=== PATIENT | male | born 1985 | race American Indian/Alaskan Native ===

== ENCOUNTER 2017-07-28 20:01 | Emergency (ER) | payer BC ==
[2017-07-28 20:46] VITALS: BP 110/73
--- NOTE | 2017-07-28 23:15 | XRay Report ---
FINAL REPORT PROCEDURE: XR FOOT 2V RT TECHNIQUE: RIGHT foot radiographs, AP and lateral views. HISTORY: right foot pain post fall COMPARISON: No prior studies are available for comparison. FINDINGS: Fracture (s) and/or Dislocation(s): None . Alignment: Normal. Joint space(s): Normal. Soft tissues: Normal. Bone mineralization: Normal. Foreign bodies: None. Calcaneal spurring: None. IMPRESSION: Normal Examination.
[2017-07-29] MEDS ORDERED: MOTRIN PO ONE (00:42)
--- NOTE | 2017-07-29 00:47 | Emergency Department Report ---
ED Fall HPI - General Chief Complaint: Fall Stated Complaint: RIB PAIN / TOE PAIN Time Seen by Provider: 07/29/17 00:41 Source: patient Mode of arrival: Ambulatory - History of Present Illness Initial Comments: 31-year-old [place] male reports he fell down 5-6 steps about 5 days ago and is having right foot and pain in the right rib area. Patient reports that he's taken ibuprofen maybe one a day which reports not really helped. Patient reports that when he coughs or takes a deep breath or moves a certain positions the pain in his right rib increases and gets worse. Patient denies any shortness of breathing. No past medical history currently takes no medications on a daily basis and has no known drug allergies. MD Complaint: fall -: days(s) (5) Fall From: down stairs (#) (5-6) Place Fall Occurred: other (friend's house) Loss of Consciousness: none Prolonged Down Time?: no Symptoms Prior to Fall: none Location: chest, other (right foot) Location - Extremities: Right: Foot Severity: moderate Quality: sharp (rib), stabbing (rib), aching (foot) Associated Symptoms: denies: headache, neck pain, shortness of breath, unable to walk - Related Data Previous Rx's Medication Instructions Recorded Last Taken Type Ibuprofen [Motrin 800 MG tab] 800 mg PO Q8HR #30 tablet 07/29/17 Unknown Rx Allergies Allergy/AdvReac Type Severity Reaction Status Date / Time No Known Allergies Allergy Unverified 07/28/17 21:55 ED Review of Systems ROS: Stated complaint: RIB PAIN / TOE PAIN Other details as noted in HPI Constitutional: denies: chills, fever Eyes: denies: eye pain, eye discharge, vision change ENT: denies: ear pain, throat pain Respiratory: other (right side of ribs). denies: cough, shortness of breath, wheezing Cardiovascular: denies: chest pain, palpitations Musculoskeletal: joint swelling (right foot), arthralgia (right foot) Skin: denies: rash, lesions ED Past Medical Hx - Past Medical History Previous Medical History?: No - Surgical History Past Surgical History?: No - Social History Smoking Status: Never Smoker Substance Use Type: Alcohol - Medications Home Medications: Home Medications Medication Instructions Recorded Confirmed Last Taken Type Ibuprofen [Motrin 800 MG tab] 800 mg PO Q8HR #30 tablet 07/29/17 Unknown Rx ED Physical Exam - General Limitations: No Limitations General appearance: alert, in no apparent distress - Head Head exam: Present: atraumatic, normocephalic - Eye Eye exam: Present: normal appearance - ENT ENT exam: Present: mucous membranes moist - Respiratory Respiratory exam: Present: normal lung sounds bilaterally, chest wall tenderness (right ribs). Absent: respiratory distress, wheezes, rales - Cardiovascular Cardiovascular Exam: Present: regular rate, normal rhythm. Absent: systolic murmur, diastolic murmur, rubs, gallop - Expanded Lower Extremity Exam Right Hip exam: Present: normal inspection, full ROM Upper Leg exam: Present: normal inspection, full ROM Knee exam: Present: normal inspection, full ROM Lower Leg exam: Present: normal inspection, full ROM Ankle exam: Present: normal inspection, full ROM Foot/Toe exam: Present: tenderness, swelling Neuro vascular tendon exam: Present: no vascular compromise ED Course Vital Signs 07/28/17 07/28/17 20:40 21:49 Temperature 98.7 F 98.7 F Pulse Rate 71 55 L Respiratory 18 18 Rate Blood Pressure 110/73 110/73 O2 Sat by Pulse 99 100 Oximetry ED Medical Decision Making - Radiology Data Radiology results: report reviewed, image reviewed FINAL REPORT PROCEDURE: XR CHEST 1V AP TECHNIQUE: Chest radiograph anteroposterior view. CPT 78250 HISTORY: chest pain post fall COMPARISON: No prior studies are available for comparison. FINDINGS: Heart: Normal. Mediastinum/Vessels: Normal. Lungs/Pleural space: Normal. Bony thorax: No acute osseous abnormality. Life support devices: None. IMPRESSION: No acute cardiopulmonary abnormality. Transcribed By: [facility] Dictated By: BEA MATTA MD Electronically Authenticated By: BEA MATTA MD Signed Date/Time: 07/29/17150 DD/ 0 TD/TT: 07/29/17150 - Medical Decision Making Patient's been evaluated by this provider fast track. Right foot x-ray shows normal examination chest x-ray pending results. We will give patient ibuprofen 800 mg now for pain. Critical care attestation.: If time is entered above; I have spent that time in minutes in the direct care of this critically ill patient, excluding procedure time. ED Disposition Clinical Impression: Fall Qualifiers: Encounter type: initial encounter Qualified Code(s): W19.XXXA - Unspecified fall, initial encounter Sprain of right foot Qualifiers: Encounter type: initial encounter Qualified Code(s): S93.601A - Unspecified sprain of right foot, initial encounter Chest wall contusion Qualifiers: Encounter type: initial encounter Laterality: right Qualified Code(s): S20.211A - Contusion of right front wall of thorax, initial encounter Disposition: DC-01 TO HOME OR SELFCARE Is pt being admited?: No Does the pt Need Aspirin: No Condition: Stable Instructions: Foot Sprain (ED), Costochondritis (ED), Fall Prevention (ED) Additional Instructions: X-rays are all negative. You can take Tylenol or Motrin for pain. Please apply ice to your foot elevate your foot rest your foot. His symptoms persist or gets worse please follow-up with your primary care provider. I have given new prescription for ibuprofen please eat prior to taking medication. Prescriptions: Ibuprofen [Motrin 800 MG tab] 800 mg PO Q8HR #30 tablet Referrals: PRIMARY CARE, [Primary Care Provider] - 3-5 Days Forms: Work/School Release Form(ED)
--- NOTE | 2017-07-29 01:55 | XRay Report ---
FINAL REPORT PROCEDURE: XR CHEST 1V AP TECHNIQUE: Chest radiograph anteroposterior view. CPT 70289 HISTORY: chest pain post fall COMPARISON: No prior studies are available for comparison. FINDINGS: Heart: Normal. Mediastinum/Vessels: Normal. Lungs/Pleural space: Normal. Bony thorax: No acute osseous abnormality. Life support devices: None. IMPRESSION: No acute cardiopulmonary abnormality.
== END 2017-07-29 02:25 | disposition home or self-care (01) ==
LOC: ED 20:01
DX: S93.601A Unspecified sprain of right foot, initial encounter (principal); S20.211A Contusion of right front wall of thorax, initial encounter; W10.9XXA Fall (on) (from) unspecified stairs and steps, initial encounter; Y93.89 Activity, other specified; Y92.89 Other specified places as the place of occurrence of the external cause; Y99.8 Other external cause status
CPT/HCPCS: 71045